=== PATIENT | female | born 1930 | race Caucasian/White ===

== ENCOUNTER 2017-03-06 07:11 | Emergency (ER) | payer MEDICARE ==
[~2017-03-06] VITALS: Ht 165.1 cm; Wt 42.7 kg
[~2017-03-06 07:11] MED LIST: BISA10SU65 PR; ENOX40SY4 SQ; FERR325T18 PO; MAGN400T26 PO; ONDA4TAB7 PO; POTA20TA14 PO; POTA2IV.2 PO; TRAM-47 PO; TRAM50TA2 PO
[2017-03-06] MEDS ORDERED: SODIUM CHLORIDE 0.9% 1,000ML IVBOLUS ONE (08:00)
[2017-03-06] MEDS ORDERED: MORPHINE SULFATE 4 MG/ML, 1ML IVPush PRN (08:00)
[2017-03-06] MEDS ORDERED: SODIUM CHLORIDE FLUSH 10ML SYR IVF ONE (08:00)
[2017-03-06] MEDS ORDERED: ONDANSETRON 2MG/ML, 2ML IVPush ONE (08:00)
[2017-03-06 08:07] LABS: HEMATOCRIT 39.4 % (34.6-47.8); HEMOGLOBIN 13.2 g/dL (11.7-16.4); WHITE BLOOD COUNT 6.8 x10^3/uL (3.4-10)
[2017-03-06 08:17] LABS: BLOOD UREA NITROGEN 14 mg/dL (7-18)
[2017-03-06] MEDS ORDERED: OMNIPAQUE 350 MG/ML, 100ML BOTTLE ONE (09:03)
[2017-03-06] MEDS ORDERED: PINK LADY ENEMA 1,000 ML PR ONE (10:30)
[2017-03-06] MEDS ORDERED: PROGESTERONE TD (11:04)
[2017-03-06] MEDS ORDERED: CHOL2000 PO (11:04)
[2017-03-06] MEDS ORDERED: POTA10TA31 PO (11:04)
[2017-03-06] MEDS ORDERED: ASPI-496 PO (11:04)
[2017-03-06] MEDS ORDERED: CEFTRIAXONE PMX 1GM/50ML 50 ML ONE (13:55)
[2017-03-06] MEDS ORDERED: CEFTRIAXONE PMX 1GM/50ML 50 ML IVPB ONE (14:00)
[2017-03-06 14:22] VITALS: BP 139/72
[2017-03-06] MEDS ORDERED: MAGNESIUM CITRATE 300ML ORAL SOL ONE (14:25)
[2017-03-06] MEDS ORDERED: MAGNESIUM CITRATE 300ML ORAL SOL PO ONE (14:30)
== END 2017-03-06 15:44 | disposition home or self-care (01) ==
LOC: ED 07:46
DX: N30.00 Acute cystitis without hematuria (principal); K59.00 Constipation, unspecified
CPT/HCPCS: 36415; 74177; 76700; 80048; 80076; 81001; 82040; 83690; 85025; 87077; 87086; 87186; 96361; 96365; 99285; J0696; J7030; Q9967

== ENCOUNTER 2017-03-07 08:14 | Inpatient (IN) | payer MEDICARE ==
[~2017-03-07] VITALS: Ht 165.1 cm; Wt 38.4 kg
[~2017-03-07 08:14] MED LIST changes: +ASPI-496 PO; +CHOL2000 PO; +POTA10TA31 PO; +PROGESTERONE TD
[2017-03-07] MEDS ORDERED: SODIUM CHLORIDE 0.9% 1,000 ML IV ONE ×2 (08:56→10:41)
[2017-03-07] MEDS ORDERED: SODIUM CHLORIDE 0.9% 1,000ML IVBOLUS ONE (09:00)
[2017-03-07] MEDS ORDERED: SODIUM CHLORIDE FLUSH 10ML SYR IVF ONE (09:00)
[2017-03-07 09:44] LABS: HEMATOCRIT 39.5 % (34.6-47.8); HEMOGLOBIN 13.3 g/dL (11.7-16.4); WHITE BLOOD COUNT 6.8 x10^3/uL (3.4-10)
[2017-03-07 09:54] LABS: ASPARTATE AMINO TRANSFERASE 19 U/L (15-37); BLOOD UREA NITROGEN 18 mg/dL (7-18)
[2017-03-07] MEDS ORDERED: SODIUM CHLORIDE FLUSH 10ML SYR IVF PRN (11:00)
[2017-03-07] MEDS ORDERED: HEPARIN 5,000 UNITS/ML, 1ML SQ SCH (12:30)
[2017-03-07] MEDS ORDERED: METOCLOPRAMIDE 5 MG/ML, 2ML IVPush PRN (12:30)
[2017-03-07] MEDS ORDERED: BISACODYL 10 MG SUPP PR SCH ×3 (12:30→21:00)
[2017-03-07 13:16] VITALS: BP 107/68
[2017-03-07 14:00] VITALS: BP 107/68
[2017-03-07] MEDS: SODIUM CHLORIDE 0.9% 1,000 ML IV SCH (15:03)
[2017-03-07] MEDS: CEFTRIAXONE PMX 1GM/50ML 50 ML IV SCH (15:09)
[2017-03-07] MEDS ORDERED: FENTANYL PF 250 MCG/5ML ONE ×2 (18:14→19:19)
[2017-03-07] MEDS ORDERED: PHENYLEPHRINE 10 MG/ML ONE (18:35)
[2017-03-07] MEDS ORDERED: SUCCINYLCHOLINE 20 MG/ML, 10ML ONE (19:17)
[2017-03-07] MEDS ORDERED: DEXAMETHASONE 4 MG/ML, 1ML ONE (19:17)
[2017-03-07] MEDS ORDERED: PROPOFOL 10 MG/ML, 20ML ONE (19:17)
[2017-03-07] MEDS ORDERED: NEOSTIGMINE 1 MG/ML, 10ML ONE (19:17)
[2017-03-07] MEDS ORDERED: ROCURONIUM 10 MG/ML,10ML ONE (19:17)
[2017-03-07] MEDS ORDERED: CEFAZOLIN 1,000 MG ONE (19:17)
[2017-03-07] MEDS ORDERED: ONDANSETRON 2MG/ML, 2ML ONE ×2 (19:17→22:19)
[2017-03-07] MEDS ORDERED: LABETALOL 5MG/ML, 20ML ONE (19:19)
[2017-03-07] MEDS ORDERED: ACETAMINOPHEN 325 MG TABLET PO PRN (19:30)
[2017-03-07] MEDS ORDERED: FENTANYL PF 100 MCG/2ML IV PRN (19:30)
[2017-03-07] MEDS ORDERED: ONDANSETRON 2MG/ML, 2ML IVPush PRN (19:30)
[2017-03-07] MEDS ORDERED: OXYcodone 5 MG/5 ML ORAL.SOL UDC PO PRN (19:30)
[2017-03-07] MEDS ORDERED: HYDROmorphone 1 MG/ML, 1ML ONE (21:41)
[2017-03-07] MEDS ORDERED: hydrALAzine 20 MG/ML, 1ML ONE (21:41)
[2017-03-07] MEDS ORDERED: SCOPOLAMINE PATCH, 1.5MG PATCH.TD72 TD ONE (21:42)
[2017-03-07] MEDS ORDERED: ENALAPRILAT 1.25 MG/ML, 2ML IVPush PRN (22:00)
[2017-03-07] MEDS ORDERED: LABETALOL 5MG/ML, 20ML IVPush PRN (22:00)
[2017-03-07] MEDS: HYDROmorphone 1 MG/ML, 1ML IV PRN ×3 (22:04→22:30)
[2017-03-07 23:13] VITALS: BP 112/74
[2017-03-08] MEDS: D5%-0.45NACL+KCL 20MEQ 1,000 ML IV SCH ×3 (01:17→22:50)
[2017-03-08] MEDS: METRONIDAZOLE PMX 500MG/100ML 100 ML IVPB SCH ×3 (01:17→18:08)
[2017-03-08] MEDS: SODIUM CHLORIDE 0.9% 1,000 ML IV SCH (01:22)
[2017-03-08 03:00] VITALS: BP 123/75
[2017-03-08 05:45] LABS: HEMATOCRIT 36.6 % (34.6-47.8); HEMOGLOBIN 12.3 g/dL (11.7-16.4); WHITE BLOOD COUNT 5.4 x10^3/uL (3.4-10)
[2017-03-08 05:49] LABS: BLOOD UREA NITROGEN 25 mg/dL (7-18)
[2017-03-08 08:00] VITALS: BP 96/61
[2017-03-08] MEDS ORDERED: ONDANSETRON 2MG/ML, 2ML IVPush PRN (08:00)
[2017-03-08 08:30] VITALS: BP 110/66
[2017-03-08] MEDS: FAMOTIDINE 20 MG/2 ML IVPush SCH ×2 (09:44→21:57)
[2017-03-08] MEDS: CEFTRIAXONE PMX 1GM/50ML 50 ML IV SCH (15:06)
[2017-03-08 16:21] VITALS: BP 124/72
[2017-03-08] MEDS ORDERED: SODIUM CHLORIDE 0.9%, 500ML IVBOLUS ONE (17:00)
[2017-03-08 20:11] VITALS: BP 113/64
[2017-03-08] MEDS ORDERED: D5%-0.45NACL+KCL 20MEQ 1,000 ML IV SCH (21:54)
[2017-03-09 02:26] VITALS: BP 114/80
[2017-03-09] MEDS: METRONIDAZOLE PMX 500MG/100ML 100 ML IVPB SCH ×3 (02:29→18:31)
[2017-03-09 04:43] LABS: HEMOGLOBIN 10.1 g/dL (11.7-16.4); WHITE BLOOD COUNT 9.4 x10^3/uL (3.4-10)
[2017-03-09 05:08] LABS: ASPARTATE AMINO TRANSFERASE 15 U/L (15-37); BLOOD UREA NITROGEN 21 mg/dL (7-18)
[2017-03-09] MEDS: D5%-0.45NACL+KCL 20MEQ 1,000 ML IV SCH (06:20)
[2017-03-09 06:54] VITALS: BP 123/80
[2017-03-09] MEDS ORDERED: TPN PER PHARMACY MC PRN (07:30)
[2017-03-09 09:00] VITALS: BP 91/63
[2017-03-09] MEDS: FAMOTIDINE 20 MG/2 ML IVPush SCH (09:45)
[2017-03-09] MEDS ORDERED: FILTER, DISP 1.2 MICRON FOR TPN/PVN IV PRN (11:00)
[2017-03-09] MEDS ORDERED: POTASSIUM PHOSPHATE 44 MEQ in SODIUM CHLORIDE 0.9% 500 ML IV ONE (11:00)
[2017-03-09] MEDS: CEFTRIAXONE PMX 1GM/50ML 50 ML IV SCH (14:52)
[2017-03-09 15:19] VITALS: BP 97/67
[2017-03-09] MEDS ORDERED: DEXTROSE 10% 500 ML IV PRN (17:00)
[2017-03-09] MEDS ORDERED: DEXTROSE 50%, 50ML SYRINGE IVPush PRN (17:00)
[2017-03-09] MEDS ORDERED: [UNRECOGNIZED DRUG - OTHER] IV SCH (17:00)
[2017-03-09] MEDS ORDERED: FAT EMULSIONS IV SCH (17:00)
[2017-03-09] MEDS ORDERED: DEXTROSE 70% IV SCH (17:00)
[2017-03-09] MEDS ORDERED: AMINO ACID 10% IV SCH (17:00)
[2017-03-09] MEDS: D5%-0.45% NACL 1,000 ML IV SCH (18:31)
[2017-03-09 20:00] VITALS: BP 102/68
[2017-03-09] MEDS: INSULIN REGULAR MEDIUM DOSE Q6H X 48HRS SQ-INSULIN SCH (21:00)
[2017-03-09] MEDS ORDERED: INSULIN REGULAR MEDIUM DOSE QDAY SQ-INSULIN SCH (21:00)
[2017-03-10 02:00] VITALS: BP 107/63
[2017-03-10] MEDS: METRONIDAZOLE PMX 500MG/100ML 100 ML IVPB SCH ×3 (02:18→17:47)
[2017-03-10] MEDS: INSULIN REGULAR MEDIUM DOSE Q6H X 48HRS SQ-INSULIN SCH ×4 (03:00→21:00)
[2017-03-10 04:29] LABS: ASPARTATE AMINO TRANSFERASE 13 U/L (15-37); BLOOD UREA NITROGEN 14 mg/dL (7-18)
[2017-03-10 06:27] VITALS: BP 98/61
[2017-03-10] MEDS: D5%-0.45% NACL 1,000 ML IV SCH ×2 (07:12→22:13)
[2017-03-10] MEDS ORDERED: DIPHENHYDRAMINE 25 MG CAPSULE PO PRN (11:30)
[2017-03-10 13:25] VITALS: BP 97/53
[2017-03-10] MEDS: CEFTRIAXONE PMX 1GM/50ML 50 ML IV SCH (15:45)
[2017-03-10] MEDS ORDERED: [UNRECOGNIZED DRUG - OTHER] IV SCH (17:00)
[2017-03-10] MEDS ORDERED: FILTER, DISP 1.2 MICRON FOR TPN/PVN IV PRN (17:00)
[2017-03-10] MEDS ORDERED: FAT EMULSIONS IV SCH (17:00)
[2017-03-10] MEDS ORDERED: AMINO ACID 10% IV SCH (17:00)
[2017-03-10] MEDS ORDERED: DEXTROSE 70% IV SCH (17:00)
[2017-03-10 19:00] VITALS: BP 117/74
[2017-03-10] MEDS ORDERED: MELATONIN 3 MG TABLET PO PRN (21:00)
[2017-03-10] MEDS ORDERED: DIPHENHYDRAMINE 50 MG/ML, 1ML ONE (22:08)
[2017-03-10] MEDS ORDERED: DIPHENHYDRAMINE 50 MG/ML, 1ML IVPush ONE (22:30)
[2017-03-11 01:14] VITALS: BP 115/71
[2017-03-11] MEDS: INSULIN REGULAR MEDIUM DOSE Q6H X 48HRS SQ-INSULIN SCH ×3 (02:56→15:27)
[2017-03-11] MEDS: METRONIDAZOLE PMX 500MG/100ML 100 ML IVPB SCH ×3 (02:56→17:58)
[2017-03-11 06:18] LABS: HEMATOCRIT 28.3 % (34.6-47.8); HEMOGLOBIN 9.4 g/dL (11.7-16.4); WHITE BLOOD COUNT 9.1 x10^3/uL (3.4-10)
[2017-03-11 06:22] LABS: ASPARTATE AMINO TRANSFERASE 11 U/L (15-37); BLOOD UREA NITROGEN 12 mg/dL (7-18)
[2017-03-11 06:58] VITALS: BP 106/67
[2017-03-11] MEDS: ENOXAPARIN 30 MG/0.3 ML SQ SCH ×2 (10:15→21:49)
[2017-03-11 12:24] VITALS: BP 102/64
[2017-03-11] MEDS: CEFTRIAXONE PMX 1GM/50ML 50 ML IV SCH (15:27)
[2017-03-11] MEDS: D5%-0.45% NACL 1,000 ML IV SCH (15:31)
[2017-03-11] MEDS: FILTER, DISP 1.2 MICRON FOR TPN/PVN IV PRN (16:44)
[2017-03-11] MEDS ORDERED: AMINO ACID 10% IV SCH (17:00)
[2017-03-11] MEDS ORDERED: [UNRECOGNIZED DRUG - OTHER] IV SCH (17:00)
[2017-03-11] MEDS ORDERED: FAT EMULSIONS IV SCH (17:00)
[2017-03-11] MEDS ORDERED: DEXTROSE 70% IV SCH (17:00)
[2017-03-11 20:00] VITALS: BP 105/56
[2017-03-12 01:30] VITALS: BP 102/66
[2017-03-12] MEDS: METRONIDAZOLE PMX 500MG/100ML 100 ML IVPB SCH ×3 (02:26→17:59)
[2017-03-12 06:08] VITALS: BP 95/68
[2017-03-12 06:14] LABS: HEMATOCRIT 26.8 % (34.6-47.8); WHITE BLOOD COUNT 8.3 x10^3/uL (3.4-10)
[2017-03-12 06:23] LABS: BLOOD UREA NITROGEN 13 mg/dL (7-18)
[2017-03-12 07:52] VITALS: BP 94/61
[2017-03-12] MEDS ORDERED: INSULIN REGULAR MEDIUM DOSE QDAY SQ-INSULIN SCH (09:00)
[2017-03-12 09:28] LABS: FERRITIN 134.1 ng/mL (8-252)
[2017-03-12] MEDS ORDERED: D5%-0.45% NACL 1,000 ML IV SCH (10:05)
[2017-03-12] MEDS: ENOXAPARIN 30 MG/0.3 ML SQ SCH ×2 (10:18→21:44)
[2017-03-12] MEDS: D5%-0.45% NACL 1,000 ML IV SCH (10:22)
[2017-03-12] MEDS: IRON SUCROSE COMPLEX 100MG/5ML IV SCH (11:49)
[2017-03-12 13:58] VITALS: BP 101/67
[2017-03-12] MEDS: CEFTRIAXONE PMX 1GM/50ML 50 ML IV SCH (15:17)
[2017-03-12] MEDS ORDERED: FAT EMULSIONS IV SCH (17:00)
[2017-03-12] MEDS ORDERED: [UNRECOGNIZED DRUG - OTHER] IV SCH (17:00)
[2017-03-12] MEDS ORDERED: DEXTROSE 70% IV SCH (17:00)
[2017-03-12] MEDS ORDERED: AMINO ACID 10% IV SCH (17:00)
[2017-03-12] MEDS: FILTER, DISP 1.2 MICRON FOR TPN/PVN IV PRN (17:09)
[2017-03-12 19:40] VITALS: BP 92/54
[2017-03-13 01:40] VITALS: BP 95/60
[2017-03-13] MEDS: METRONIDAZOLE PMX 500MG/100ML 100 ML IVPB SCH ×3 (02:05→17:06)
[2017-03-13 06:15] LABS: HEMATOCRIT 26.4 % (34.6-47.8); HEMOGLOBIN 8.8 g/dL (11.7-16.4); WHITE BLOOD COUNT 9.6 x10^3/uL (3.4-10)
[2017-03-13 06:24] LABS: ASPARTATE AMINO TRANSFERASE 15 U/L (15-37); BLOOD UREA NITROGEN 14 mg/dL (7-18)
[2017-03-13 07:30] VITALS: BP 96/62
[2017-03-13] MEDS: INSULIN REGULAR MEDIUM DOSE QDAY SQ-INSULIN SCH ×2 (09:57→20:30)
[2017-03-13] MEDS: IRON SUCROSE COMPLEX 100MG/5ML IV SCH (10:00)
[2017-03-13] MEDS: ENOXAPARIN 30 MG/0.3 ML SQ SCH ×2 (10:03→22:29)
[2017-03-13 12:56] VITALS: BP 101/69
[2017-03-13] MEDS: CEFTRIAXONE PMX 1GM/50ML 50 ML IV SCH (14:32)
[2017-03-13] MEDS: FILTER, DISP 1.2 MICRON FOR TPN/PVN IV PRN (16:58)
[2017-03-13] MEDS: D5%-0.45% NACL 1,000 ML IV SCH (16:59)
[2017-03-13] MEDS ORDERED: [UNRECOGNIZED DRUG - OTHER] IV SCH (17:00)
[2017-03-13] MEDS ORDERED: AMINO ACID 10% IV SCH (17:00)
[2017-03-13] MEDS ORDERED: FAT EMULSIONS IV SCH (17:00)
[2017-03-13] MEDS ORDERED: DEXTROSE 70% IV SCH (17:00)
[2017-03-13 19:40] VITALS: BP 91/58
[2017-03-14] MEDS: METRONIDAZOLE PMX 500MG/100ML 100 ML IVPB SCH ×3 (02:38→18:24)
[2017-03-14 02:59] VITALS: BP 102/60
[2017-03-14] MEDS ORDERED: CATHFLO-ALTEPLASE 2 MG/2 ML CATHFLUSH ONE ×2 (05:30)
[2017-03-14 06:11] LABS: HEMATOCRIT 26.3 % (34.6-47.8); HEMOGLOBIN 8.9 g/dL (11.7-16.4); WHITE BLOOD COUNT 10.3 x10^3/uL (3.4-10)
[2017-03-14 06:22] LABS: BLOOD UREA NITROGEN 17 mg/dL (7-18)
[2017-03-14 06:27] LABS: ASPARTATE AMINO TRANSFERASE 8 U/L (15-37)
[2017-03-14 07:05] VITALS: BP 99/63
[2017-03-14 07:07] VITALS: BP 159/79
[2017-03-14] MEDS: INSULIN REGULAR MEDIUM DOSE QDAY SQ-INSULIN SCH ×2 (08:30→21:27)
[2017-03-14] MEDS: ENOXAPARIN 30 MG/0.3 ML SQ SCH ×2 (11:13→21:17)
[2017-03-14] MEDS: IRON SUCROSE COMPLEX 100MG/5ML IV SCH (11:13)
[2017-03-14] MEDS: FAMOTIDINE 20 MG/2 ML IVPush SCH ×2 (11:14→21:16)
[2017-03-14 12:42] VITALS: BP 101/63
[2017-03-14] MEDS: FILTER, DISP 1.2 MICRON FOR TPN/PVN IV PRN (16:50)
[2017-03-14] MEDS ORDERED: FAT EMULSIONS IV SCH (17:00)
[2017-03-14] MEDS ORDERED: AMINO ACID 10% IV SCH (17:00)
[2017-03-14] MEDS ORDERED: [UNRECOGNIZED DRUG - OTHER] IV SCH (17:00)
[2017-03-14] MEDS ORDERED: DEXTROSE 70% IV SCH (17:00)
[2017-03-14 19:09] VITALS: BP 108/61
[2017-03-15 01:30] VITALS: BP 95/55
[2017-03-15] MEDS: morphine SULFATE 10 MG/ML, 1ML IVPush PRN ×2 (01:42→21:16)
[2017-03-15] MEDS: METRONIDAZOLE PMX 500MG/100ML 100 ML IVPB SCH ×3 (02:36→17:34)
[2017-03-15 06:40] LABS: HEMATOCRIT 25.3 % (34.6-47.8); HEMOGLOBIN 8.5 g/dL (11.7-16.4); WHITE BLOOD COUNT 9.8 x10^3/uL (3.4-10)
[2017-03-15 06:52] LABS: BLOOD UREA NITROGEN 18 mg/dL (7-18)
[2017-03-15 07:09] VITALS: BP 97/63
[2017-03-15] MEDS: INSULIN REGULAR MEDIUM DOSE QDAY SQ-INSULIN SCH ×2 (08:30→21:16)
[2017-03-15] MEDS: FAMOTIDINE 20 MG/2 ML IVPush SCH (09:50)
[2017-03-15] MEDS: ENOXAPARIN 30 MG/0.3 ML SQ SCH (09:53)
[2017-03-15] MEDS: IRON SUCROSE COMPLEX 100MG/5ML IV SCH (11:28)
[2017-03-15] MEDS ORDERED: AMINO ACID 10% IV SCH ×2 (17:00)
[2017-03-15] MEDS ORDERED: FAT EMULSIONS IV SCH ×2 (17:00)
[2017-03-15] MEDS ORDERED: [UNRECOGNIZED DRUG - OTHER] IV SCH (17:00)
[2017-03-15] MEDS ORDERED: DEXTROSE 70% IV SCH ×2 (17:00)
[2017-03-15] MEDS ORDERED: FILTER, DISP 1.2 MICRON FOR TPN/PVN IV PRN (17:00)
[2017-03-15] MEDS ORDERED: [UNRECOGNIZED DRUG - OTHER] IV SCH (17:00)
[2017-03-15] MEDS: D5%-0.45% NACL 1,000 ML IV SCH (17:29)
[2017-03-15 18:56] VITALS: BP 98/60
[2017-03-16] MEDS: METRONIDAZOLE PMX 500MG/100ML 100 ML IVPB SCH ×3 (02:44→18:11)
[2017-03-16] MEDS: ENOXAPARIN 30 MG/0.3 ML SQ SCH ×3 (02:44→21:46)
[2017-03-16 03:05] VITALS: BP 90/58
[2017-03-16 07:30] VITALS: BP 102/68
[2017-03-16] MEDS ORDERED: BENZOCAINE AEROSOL SPRAY 20%, 60ML TP ONE (07:30)
[2017-03-16] MEDS ORDERED: PHENOL THROAT SPRAY BOTTLE MM PRN (08:30)
[2017-03-16] MEDS ORDERED: FILTER, DISP 1.2 MICRON FOR TPN/PVN IV PRN (09:00)
[2017-03-16 14:00] VITALS: BP 86/56
[2017-03-16] MEDS: IRON SUCROSE COMPLEX 100MG/5ML IV SCH (15:51)
[2017-03-16] MEDS ORDERED: DEXTROSE 70% IV SCH (17:00)
[2017-03-16] MEDS ORDERED: FAT EMULSIONS IV SCH (17:00)
[2017-03-16] MEDS ORDERED: AMINO ACID 10% IV SCH (17:00)
[2017-03-16] MEDS ORDERED: [UNRECOGNIZED DRUG - OTHER] IV SCH (17:00)
[2017-03-16] MEDS: morphine SULFATE 10 MG/ML, 1ML IVPush PRN ×2 (17:29→21:46)
[2017-03-16 20:15] VITALS: BP 98/59
[2017-03-17 01:52] VITALS: BP 102/59
[2017-03-17] MEDS: morphine SULFATE 10 MG/ML, 1ML IVPush PRN ×2 (02:17→06:51)
[2017-03-17] MEDS: METRONIDAZOLE PMX 500MG/100ML 100 ML IVPB SCH ×2 (02:18→10:00)
[2017-03-17] MEDS ORDERED: CATHFLO-ALTEPLASE 2 MG/2 ML CATHFLUSH ONE (07:00)
[2017-03-17 07:51] LABS: BLOOD UREA NITROGEN 22 mg/dL (7-18)
[2017-03-17] MEDS ORDERED: INSULIN REGULAR, HUMAN 100 UNITS/ML, 3ML MEDIUM DOSE SS SQ-INSULIN SCH (09:00)
[2017-03-17] MEDS: ENOXAPARIN 30 MG/0.3 ML SQ SCH (10:00)
[2017-03-17] MEDS ORDERED: FENTANYL 12 MCG PATCH ONE (14:37)
[2017-03-17] MEDS ORDERED: FENTANYL 12 MCG PATCH TD SCH (16:00)
[2017-03-17 20:29] VITALS: BP 94/61
[2017-03-18 00:32] VITALS: BP 90/63
[2017-03-18 08:15] VITALS: BP 89/59
[2017-03-18] MEDS ORDERED: ENOXAPARIN 30 MG/0.3 ML SQ SCH (10:00)
== END 2017-03-18 12:00 | disposition hospice, home (50) | DRG 329 ==
LOC: ED 08:46 → EDIP 10:41 → 3NE 12:27 → 4NOR 23:20
PROVIDERS: ADMIT Internal Medicine; ATTEND Internal Medicine
PROC: 0D1M0Z4 Bypass Descending Colon to Cutaneous, Open Approach (ICD-10-PCS; 2017-03-07)
PROC: 0DBG0ZZ Excision of Left Large Intestine, Open Approach (ICD-10-PCS; 2017-03-07)
PROC: 0DB80ZZ Excision of Small Intestine, Open Approach (ICD-10-PCS; principal; 2017-03-07 20:30)
PROC: 02HV33Z Insertion of Infusion Device into Superior Vena Cava, Percutaneous Approach (ICD-10-PCS; 2017-03-09)
PROC: B548ZZA Ultrasonography of Superior Vena Cava, Guidance (ICD-10-PCS; 2017-03-09)
PROC: 3E0436Z Introduction of Nutritional Substance into Central Vein, Percutaneous Approach (ICD-10-PCS; 2017-03-09)
PROC: 05PY33Z Removal of Infusion Device from Upper Vein, Percutaneous Approach (ICD-10-PCS; 2017-03-18)
DX: C20 Malignant neoplasm of rectum (principal); E43 Unspecified severe protein-calorie malnutrition; K56.609 Unspecified intestinal obstruction, unspecified as to partial versus complete obstruction; K52.0 Gastroenteritis and colitis due to radiation; N39.0 Urinary tract infection, site not specified; D64.9 Anemia, unspecified; E87.1 Hypo-osmolality and hyponatremia; Z68.1 Body mass index [BMI] 19.9 or less, adult; K66.0 Peritoneal adhesions (postprocedural) (postinfection); I10 Essential (primary) hypertension; K80.20 Calculus of gallbladder without cholecystitis without obstruction; Y84.2 Radiological procedure and radiotherapy as the cause of abnormal reaction of the patient, or of later complication, without mention of misadventure at the time of the procedure; Z51.5 Encounter for palliative care; Z66 Do not resuscitate; Z82.49 Family history of ischemic heart disease and other diseases of the circulatory system; Z85.42 Personal history of malignant neoplasm of other parts of uterus; Z86.73 Personal history of transient ischemic attack (TIA), and cerebral infarction without residual deficits; Z92.3 Personal history of irradiation; Z90.710 Acquired absence of both cervix and uterus
CPT/HCPCS: 36415; 36569; 74000; 74022; 76937; 77001; 80048; 80053; 82728; 82962; 83540; 83550; 83605; 83690; 83735; 84100; 84134; 84466; 84478; 85025; 85610; 85730; 88305; 88307; 88309; 88342; 93005; 96360; 96361; J0690; J0696; J1100; J1170; J1644; J1650; J1756; J1815; J2405; J2704; J2710; J2997; J3010; J3475; J3480; C1751; G0461; J0330; J0610; J1200; J2270; J2370; J3420; J7030; J7040; S0028